=== PATIENT | male | born 1955 | race Caucasian/White ===

== ENCOUNTER 2021-01-12 20:41 | Emergency (ER) | payer OTHER ==
[~2021-01-12 20:41] MED LIST: ACETAMINOPHEN500 MG PO; BUMETANIDE0.5 MG PO; CARTIA XT120 MG PO; CEFUROXIME250 MG PO; DILTIAZEM 24HR180 M1 PO; ELIQUIS5 MG PO; IBUPROFEN200 M1 PO; METOPROLOL SUC100 MG PO
== END 2021-01-12 21:04 | disposition home or self-care (01) ==
LOC: ER1 20:41
DX: Z53.21 Procedure and treatment not carried out due to patient leaving prior to being seen by health care provider (principal)

== ENCOUNTER 2021-12-01 18:33 | Inpatient (IN) | payer OTHER ==
[~2021-12-01] VITALS: Ht 188 cm; Wt 169.9 kg
[~2021-12-01 18:33] MED LIST changes: +BUMETANIDE1 MG PO; +DILTIAZEM 24HR120 M1 PO; +IBU800 MG PO; +LISINOPRIL10 MG PO; +LORATADINE10 MG PO; +METOPROLOL SUCC50 MG PO
[2021-12-01 19:03] LABS: HEMOGLOBIN 16.9 gm/dl (14.0-17.5); RED BLOOD COUNT 5.99 M/UL (4.20-5.50); WHITE BLOOD COUNT 16.4 K/UL (4.5-11.0)
[2021-12-01 19:45] LABS: BUN/CREATININE RATIO 21 (0-10)
[2021-12-02 03:49] LABS: HEMOGLOBIN 16.3 gm/dl (14.0-17.5); RED BLOOD COUNT 5.75 M/UL (4.20-5.50)
[2021-12-02 04:01] LABS: WHITE BLOOD COUNT 27.4 K/UL (4.5-11.0)
[2021-12-02 04:27] LABS: BUN/CREATININE RATIO 22 (0-10)
[2021-12-02] MEDS ORDERED: BUMETANIDE1 MG PO (10:52)
[2021-12-02] MEDS ORDERED: METOPROLOL SUC100 MG PO (10:52)
[2021-12-02] MEDS ORDERED: DILTIAZEM 24HR120 M1 PO (10:53)
--- NOTE | 2021-12-02 12:57 | NUR ---
During hourly rounding the patient was found lying in bed with all lines unplugged. When questioned, he said he needed to go to the bathroom so he unhooked everything. The patient was educated again on the risks of falling and asked to use his call light when he is ready to get out of bed or move about his room. He has already been educated on falls and call light use multiple times during my shift. He is alert and oriented at this time and has been since the beginning of my shift. I will continue to educate the patient about fall risks and ask him to use his call light.
[2021-12-02 13:01] LABS: CANDIDA ALBICANS Not Detected (Negative); CANDIDA KRUSEI Not Detected (Negative); CANDIDA TROPICALIS Not Detected (Negative); ESCHERICHIA COLI Not Detected (Negative); HAEMOPHILUS INFLUENZAE Not Detected (Negative); KLEBSIELLA OXYTOCA Not Detected (Negative); KLEBSIELLA PNEUMONIAE Not Detected (Negative); KPC-CARBAPENEM-RESISTANCE GENE Not Detected (Negative); PROTEUS Not Detected (Negative); SERRATIA MARCESANS Not Detected (Negative); STAPHYLOCOCCUS Not Detected (Negative); STAPHYLOCOCCUS AUREUS Not Detected (Negative); STREP AGALACTIAE (GROUP B) Not Detected (Negative); STREP PYOGENES (GROUP A) Not Detected (Negative); STREPTOCOCCUS Not Detected (Negative); vanA/B (VANCOMYCIN RESIST GENE Not Detected (Negative)
[2021-12-02 14:26] LABS: PSEUDOMONAS AERUGINOSA DETECTED (Negative)
[2021-12-03 01:51] LABS: HEMOGLOBIN 15.3 gm/dl (14.0-17.5); RED BLOOD COUNT 5.44 M/UL (4.20-5.50)
[2021-12-03 01:55] LABS: WHITE BLOOD COUNT 11.4 K/UL (4.5-11.0)
[2021-12-03 02:17] LABS: BUN/CREATININE RATIO 23 (0-10)
--- NOTE | 2021-12-03 14:17 | NUR ---
PT DEMANDED TO GET UP AND GO INTO BATHROOM. PT INFORMED THAT I COULD NOT MONITOR HIS BP AND HR WHILE IN BATHROOM. PT REFUSED BEDSIDE COMMODE. 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
[2021-12-04 03:00] LABS: HEMOGLOBIN 16.4 gm/dl (14.0-17.5); RED BLOOD COUNT 5.81 M/UL (4.20-5.50); WHITE BLOOD COUNT 10.4 K/UL (4.5-11.0)
[2021-12-04 03:31] LABS: BUN/CREATININE RATIO 25 (0-10)
[2021-12-05 02:58] LABS: HEMOGLOBIN 17.1 gm/dl (14.0-17.5); RED BLOOD COUNT 6.02 M/UL (4.20-5.50); WHITE BLOOD COUNT 11.3 K/UL (4.5-11.0)
[2021-12-06 03:19] LABS: HEMOGLOBIN 16.8 gm/dl (14.0-17.5); RED BLOOD COUNT 6.26 M/UL (4.20-5.50); WHITE BLOOD COUNT 10.1 K/UL (4.5-11.0)
[2021-12-06] MEDS ORDERED: LOPRESSOR 50 MG50 MG PO (12:08)
[2021-12-06] MEDS ORDERED: DIGOXIN250 MCG PO (12:08)
[2021-12-06] MEDS ORDERED: JARDIANCE10 MG PO (12:08)
[2021-12-06] MEDS ORDERED: BUMETANIDE1 MG PO (12:08)
[2021-12-06] MEDS ORDERED: AMIODARONE HCL200 MG PO (12:08)
[2021-12-06] MEDS ORDERED: MEROPENEM1 GM IV (12:08)
[2021-12-06] MEDS ORDERED: ENTRESTO 24 MG1 EACH PO (12:08)
[2021-12-06] MEDS ORDERED: AMIODARONE HCL400 MG PO (12:08)
== END 2021-12-06 17:35 | disposition home or self-care (01) | DRG 871 ==
LOC: ER1 18:33 → PROG CARE 20:55 → CDU 20:55 → PROG CARE 22:34
PROVIDERS: Family Medicine; Internal Medicine; ADMIT Internal Medicine
PROC: 3E03329 Introduction of Other Anti-infective into Peripheral Vein, Percutaneous Approach (ICD-10-PCS; 2021-12-01)
PROC: B24BZZZ Ultrasonography of Heart with Aorta (ICD-10-PCS; principal; 2021-12-03)
DX: A41.52 Sepsis due to Pseudomonas (principal); I50.23 Acute on chronic systolic (congestive) heart failure; Z20.822 Contact with and (suspected) exposure to COVID-19; J18.9 Pneumonia, unspecified organism; J96.21 Acute and chronic respiratory failure with hypoxia; I47.1 Supraventricular tachycardia; I42.8 Other cardiomyopathies; I42.0 Dilated cardiomyopathy; L03.115 Cellulitis of right lower limb; Z68.42 Body mass index [BMI] 45.0-49.9, adult; I48.21 Permanent atrial fibrillation; R65.20 Severe sepsis without septic shock; I27.20 Pulmonary hypertension, unspecified; I08.3 Combined rheumatic disorders of mitral, aortic and tricuspid valves; I11.0 Hypertensive heart disease with heart failure; I25.10 Atherosclerotic heart disease of native coronary artery without angina pectoris; R79.89 Other specified abnormal findings of blood chemistry; M19.90 Unspecified osteoarthritis, unspecified site; E78.5 Hyperlipidemia, unspecified; E66.01 Morbid (severe) obesity due to excess calories; Z79.01 Long term (current) use of anticoagulants; Z82.49 Family history of ischemic heart disease and other diseases of the circulatory system; Z83.3 Family history of diabetes mellitus; Z81.1 Family history of alcohol abuse and dependence; Z90.49 Acquired absence of other specified parts of digestive tract
CPT/HCPCS: 0240U; 36415; 36600; 71045; 80048; 80053; 80061; 81001; 82550; 82553; 82803; 83036; 83605; 83735; 83880; 84100; 84439; 84443; 84484; 85025; 85027; 85610; 86140; 87040; 87077; 87086; 87150; 87186; 93005; 94640; 94760; 96374; 96375; 99285; C1751; J0696; J1160; J1940; J2185; J3370; J7030; J7070

== ENCOUNTER → 2021-12-14 | Outpatient (CLI) | payer OTHER ==
[~2021-12-14] MED LIST changes: +AMIODARONE HCL200 MG PO; +AMIODARONE HCL400 MG PO; +DIGOXIN250 MCG PO; +ENTRESTO 24 MG1 EACH PO; +JARDIANCE10 MG PO; +LOPRESSOR 50 MG50 MG PO; +MEROPENEM1 GM IV
== END ==
LOC: OPSV 12-13 14:00
DX: Z53.9 Procedure and treatment not carried out, unspecified reason (principal)
CPT/HCPCS: G0463

== ENCOUNTER → 2021-12-17 | Outpatient (CLI) | payer OTHER | LOC: WCC 13:15 | DX: I87.2 Venous insufficiency (chronic) (peripheral) (principal); L97.822 Non-pressure chronic ulcer of other part of left lower leg with fat layer exposed; L97.812 Non-pressure chronic ulcer of other part of right lower leg with fat layer exposed; I48.91 Unspecified atrial fibrillation; I13.2 Hypertensive heart and chronic kidney disease with heart failure and with stage 5 chronic kidney disease, or end stage renal disease; N18.6 End stage renal disease; I50.9 Heart failure, unspecified; E66.01 Morbid (severe) obesity due to excess calories; R60.0 Localized edema ==

== ENCOUNTER → 2021-12-24 | Outpatient (CLI) | payer OTHER | LOC: WCC 07:03 | DX: I87.2 Venous insufficiency (chronic) (peripheral) (principal); L97.822 Non-pressure chronic ulcer of other part of left lower leg with fat layer exposed; L97.812 Non-pressure chronic ulcer of other part of right lower leg with fat layer exposed; I48.91 Unspecified atrial fibrillation; I13.2 Hypertensive heart and chronic kidney disease with heart failure and with stage 5 chronic kidney disease, or end stage renal disease; N18.6 End stage renal disease; I50.9 Heart failure, unspecified; E66.01 Morbid (severe) obesity due to excess calories; R60.0 Localized edema ==

== ENCOUNTER → 2021-12-31 | Outpatient (CLI) | payer OTHER | LOC: WCC 07:39 | DX: I87.2 Venous insufficiency (chronic) (peripheral) (principal); L97.822 Non-pressure chronic ulcer of other part of left lower leg with fat layer exposed; L97.812 Non-pressure chronic ulcer of other part of right lower leg with fat layer exposed; I48.91 Unspecified atrial fibrillation; I13.2 Hypertensive heart and chronic kidney disease with heart failure and with stage 5 chronic kidney disease, or end stage renal disease; N18.6 End stage renal disease; I50.9 Heart failure, unspecified; E66.01 Morbid (severe) obesity due to excess calories; R60.0 Localized edema ==

== ENCOUNTER → 2022-01-07 | Outpatient (CLI) | payer OTHER | LOC: EXRD 09:50 → HEART 5 11:00 | DX: L97.812 Non-pressure chronic ulcer of other part of right lower leg with fat layer exposed (principal) | CPT/HCPCS: 93922; 93925; 93970 ==

== ENCOUNTER → 2022-01-15 | Outpatient (CLI) | payer OTHER | END | disposition home or self-care (01) | LOC: WCC 07:36 | DX: I87.2 Venous insufficiency (chronic) (peripheral) (principal); L97.812 Non-pressure chronic ulcer of other part of right lower leg with fat layer exposed; I11.0 Hypertensive heart disease with heart failure; I50.9 Heart failure, unspecified; I48.91 Unspecified atrial fibrillation; E66.01 Morbid (severe) obesity due to excess calories; Z68.42 Body mass index [BMI] 45.0-49.9, adult ==

== ENCOUNTER → 2022-01-21 | Outpatient (CLI) | payer OTHER | END | disposition home or self-care (01) | LOC: WCC 07:09 | DX: I87.2 Venous insufficiency (chronic) (peripheral) (principal); L97.912 Non-pressure chronic ulcer of unspecified part of right lower leg with fat layer exposed; I48.91 Unspecified atrial fibrillation; I11.0 Hypertensive heart disease with heart failure; I50.9 Heart failure, unspecified; E66.01 Morbid (severe) obesity due to excess calories; Z68.42 Body mass index [BMI] 45.0-49.9, adult; Z79.899 Other long term (current) drug therapy ==

== ENCOUNTER → 2022-01-28 | Outpatient (CLI) | payer OTHER | LOC: WCC 08:18 | DX: I87.2 Venous insufficiency (chronic) (peripheral) (principal); L97.812 Non-pressure chronic ulcer of other part of right lower leg with fat layer exposed; R60.0 Localized edema; I13.2 Hypertensive heart and chronic kidney disease with heart failure and with stage 5 chronic kidney disease, or end stage renal disease; I50.9 Heart failure, unspecified; N18.6 End stage renal disease; M25.551 Pain in right hip; M25.561 Pain in right knee; I48.91 Unspecified atrial fibrillation; E66.01 Morbid (severe) obesity due to excess calories; Z68.42 Body mass index [BMI] 45.0-49.9, adult; Z79.899 Other long term (current) drug therapy | CPT/HCPCS: G0463 ==

== ENCOUNTER → 2022-02-05 | Outpatient (CLI) | payer OTHER | END | disposition home or self-care (01) | LOC: WCC 08:21 | DX: I87.2 Venous insufficiency (chronic) (peripheral) (principal); L97.912 Non-pressure chronic ulcer of unspecified part of right lower leg with fat layer exposed; I11.0 Hypertensive heart disease with heart failure; I50.9 Heart failure, unspecified; I48.91 Unspecified atrial fibrillation; E66.01 Morbid (severe) obesity due to excess calories; Z79.899 Other long term (current) drug therapy; Z68.42 Body mass index [BMI] 45.0-49.9, adult ==